=== PATIENT | female | born 1965 | race Caucasian/White ===

== ENCOUNTER 2020-02-22 07:48 | Outpatient (CLI) | payer BC, SELFPAY ==
--- NOTE | 2020-02-22 07:59 | MM_ITS ---
WS: [id number] SCREENING DIGITAL MAMMOGRAM WITH CAD HISTORY: SCREENING COMPARISON: 05/21/2019 and 04/06/2018 Bilateral CC and MLO views submitted. Computer aided detection analyzed. Breast composition: There are scattered areas of fibroglandular density. There is an asymmetry in the central posterior RIGHT breast which has not been present on prior studies. This asymmetry measures 11 mm. May be central to the nipple on the lateral projection but the sizes are not concordant. Other schultz no additional abnormality. RIGHT breast: Spot compression views (CC and MLO). True ML. Ultrasound to follow if abnormality persi sts. MM/[place] [id number] IMPRESSION: BI-RADS: 0-Incomplete: Need additional imaging evaluation FOLLOW UP: Need Additional Imaging
== END 2020-02-22 07:49 | disposition home or self-care (01) ==
LOC: RADSHAW 07:51
PROVIDERS: PCP Family Medicine; Visit Provider Obstetrics & Gynecology
DX: Z12.31 Encounter for screening mammogram for malignant neoplasm of breast (principal); N64.89 Other specified disorders of breast
CPT/HCPCS: 77067

== ENCOUNTER 2020-03-19 08:17 | Outpatient (CLI) | payer BC, SELFPAY ==
--- NOTE | 2020-03-19 09:00 | MM_ITS ---
WS: [id number] RIGHT DIGITAL MAMMOGRAPHY WITH CAD CLINICAL INFORMATION: abnormal mammogram COMPARISON: None. TECHNIQUE: 3 views of the right breast were obtained. FINDINGS: Scattered fibroglandular densities of the right breast. 11 mm vague asymmetry central right breast pe rsistent on spot compression views. Ultrasound is pending. ULTRASOUND BREAST RIGHT TECHNIQUE: Ultrasound right breast focused area of concern. CLINICAL INFORMATION: abnormal mammogram COMPARISON: None. FINDINGS: Ultrasound right breast 12 to 3:00 position. No evidence of pathologic mass or lesion. No lesions to target for biopsy. No suspicious abnormalities. Normal underlying breast tissue. Incidental vessel se en in this area. MM/[place] [id number] IMPRESSION: BI-RADS: 2-Benign FOLLOW UP: 1 Year Follow-up Recommend return to annual screening mammography.
--- NOTE | 2020-03-19 09:30 | US_ITS ---
WS: [id number] RIGHT DIGITAL MAMMOGRAPHY WITH CAD CLINICAL INFORMATION: abnormal mammogram COMPARISON: None. TECHNIQUE: 3 views of the right breast were obtained. FINDINGS: Scattered fibroglandular densities of the right breast. 11 mm vague asymmetry central right breast pe rsistent on spot compression views. Ultrasound is pending. ULTRASOUND BREAST RIGHT TECHNIQUE: Ultrasound right breast focused area of concern. CLINICAL INFORMATION: abnormal mammogram COMPARISON: None. FINDINGS: Ultrasound right breast 12 to 3:00 position. No evidence of pathologic mass or lesion. No lesions to target for biopsy. No suspicious abnormalities. Normal underlying breast tissue. Incidental vessel se en in this area. US/US breast RT limited* [id number] IMPRESSION: BI-RADS: 2-Benign FOLLOW UP: 1 Year Follow-up Recommend return to annual screening mammography.
== END 2020-03-19 08:18 | disposition home or self-care (01) ==
LOC: RADSHAW 08:21
PROVIDERS: PCP Family Medicine; Visit Provider Obstetrics & Gynecology
DX: R92.8 Other abnormal and inconclusive findings on diagnostic imaging of breast (principal)
CPT/HCPCS: 76642; 77065

== ENCOUNTER → 2020-03-24 08:25 | Outpatient (BNVA) | payer BC, SELFPAY | PROVIDERS: PCP Family Medicine; Visit Provider Obstetrics & Gynecology | DX: Z12.4 Encounter for screening for malignant neoplasm of cervix (principal) | CPT/HCPCS: 88175 ==

== ENCOUNTER 2021-03-11 07:42 | Outpatient (CLI) | payer BC, SELFPAY ==
--- NOTE | 2021-03-11 07:50 | MM_ITS ---
WS: [id number] BILATERAL DIGITAL SCREENING MAMMOGRAPHY WITH CAD CLINICAL INFORMATION: SCREENING HISTORY: Screening mammogram. No current complaints. COMPARISON: February 20, 2020 TECHNIQUE: Bilateral CC and MLO views. FINDINGS: Scattered fibroglandular densities bilaterally. A few punctate calcifications. No suspicious focal ma ss, asymmetry, calcifications, or architectural distortion. No evidence of malignancy. MM/[place] [id number] IMPRESSION: BI-RADS: 2-Benign FOLLOW UP: 1 Year Follow-up Recommend return to annual screening mammography.
== END 2021-03-11 07:43 | disposition home or self-care (01) ==
LOC: RADSHAW 07:45
PROVIDERS: PCP Family Medicine; Visit Provider Obstetrics & Gynecology
DX: Z12.31 Encounter for screening mammogram for malignant neoplasm of breast (principal)
CPT/HCPCS: 77067